=== PATIENT | male | born 1945 | race Caucasian/White ===

== ENCOUNTER 2019-03-01 07:23 | Emergency (ER) | payer MEDICARE, OTHER ==
[~2019-03-01] VITALS: Ht 170.2 cm; Wt 74.5 kg
[~2019-03-01 07:23] MED LIST: BENA40TA73 PO
[2019-03-01 07:24] VITALS: BP 153/87
[2019-03-01] MEDS ORDERED: NAPR-56 PO (07:55)
[2019-03-01] MEDS ORDERED: HYDR-4383 PO (08:24)
[2019-03-01] MEDS ORDERED: naproxen 500mg tablet PO ONE (08:25)
== END 2019-03-01 08:46 | disposition home or self-care (01) ==
LOC: ER 07:24
DX: S22.43XA Multiple fractures of ribs, bilateral, initial encounter for closed fracture (principal); I10 Essential (primary) hypertension; E11.9 Type 2 diabetes mellitus without complications; Z90.49 Acquired absence of other specified parts of digestive tract; Z79.899 Other long term (current) drug therapy; W11.XXXA Fall on and from ladder, initial encounter; Y93.89 Activity, other specified; Y92.89 Other specified places as the place of occurrence of the external cause; Y99.8 Other external cause status
CPT/HCPCS: 71046; 99283